=== PATIENT | male | born 1975 | race Two or more races ===

== ENCOUNTER 2019-09-18 23:13 | Emergency (ER) | payer OTHER ==
[~2019-09-18] VITALS: Ht 167.6 cm; Wt 76.3 kg
[2019-09-18 23:24] VITALS: Ht 167.6 cm; Wt 76.3 kg
[2019-09-19 00:39] VITALS: BP 120/87
== END 2019-09-19 00:39 | disposition home or self-care (01) ==
LOC: ED 23:13
DX: S05.01XA Injury of conjunctiva and corneal abrasion without foreign body, right eye, initial encounter (principal); X58.XXXA Exposure to other specified factors, initial encounter; Y93.89 Activity, other specified; Y92.89 Other specified places as the place of occurrence of the external cause; Y99.8 Other external cause status

== ENCOUNTER 2019-11-17 18:15 | Emergency (ER) | payer OTHER ==
[~2019-11-17] VITALS: Ht 167.6 cm; Wt 78.9 kg
[2019-11-17 18:20] VITALS: BP 122/76; Ht 167.6 cm; Wt 78.9 kg
== END 2019-11-17 19:46 | disposition home or self-care (01) ==
LOC: ED 18:15
DX: S66.911A Strain of unspecified muscle, fascia and tendon at wrist and hand level, right hand, initial encounter (principal); X50.0XXA Overexertion from strenuous movement or load, initial encounter; Y93.89 Activity, other specified; Y92.89 Other specified places as the place of occurrence of the external cause; Y99.8 Other external cause status
CPT/HCPCS: Q0092